=== PATIENT | female | born 1990 | race Two or more races ===

== ENCOUNTER 2019-02-22 13:54 | Emergency (ER) | payer MEDICAID ==
[~2019-02-22] VITALS: Ht 149.9 cm; Wt 52.0 kg
[2019-02-22 15:11] VITALS: BP 102/61
[2019-02-22] MEDS ORDERED: HYDROCODONE/ACETAMINOPHEN 5/325MG TABLET PO ONE (16:15)
[2019-02-22] MEDS ORDERED: ONDANSETRON 4MG ODT PO ONE (16:15)
[2019-02-22 16:59] LABS: CLARITY URINE CLOUDY (CLEAR); COLOR URINE YELLOW (YELLOW); KETONES URINE 1+ (NEGATIVE); LEUKOCYTE ESTERASE URINE 1+ (NEGATIVE); NITRITE URINE POSITIVE (NEGATIVE); OCCULT BLOOD URINE TRACE (NEGATIVE); PH URINE 6.5 (4.5-8.0); PROTEIN URINE NEGATIVE (NEGATIVE); SPECIFIC GRAVITY URINE 1.011 (1.005-1.030); UROBILINOGEN URINE 0.2 E.U./dL (0.2-1.0)
== END 2019-02-22 18:20 | disposition home or self-care (01) ==
LOC: ER 13:54
DX: M54.2 Cervicalgia (principal); M54.89 Other dorsalgia; V43.52XA Car driver injured in collision with other type car in traffic accident, initial encounter; Y93.89 Activity, other specified; Y92.488 Other paved roadways as the place of occurrence of the external cause
CPT/HCPCS: 72070; 72125; 74176; 81003; 81025; 99284; Q0162